=== PATIENT | female | born 2005 | race Hispanic/Latino ===

== ENCOUNTER 2023-10-01 09:30 | Emergency (ER) | payer BC ==
[~2023-10-01] VITALS: Ht 160 cm; Wt 85.3 kg
[2023-10-01] MEDS ORDERED: IBUPROFEN 600 MG TABLET PO ONE (11:00)
[2023-10-01 11:10] LABS: APPEARANCE,URINE CLEAR (CLEAR); BILIRUBIN,URINE NEGATIVE (NEGATIVE); GLUCOSE, URINE (UA) NEGATIVE (NEGATIVE); KETONES,URINE NEGATIVE (NEGATIVE); LEUKOCYTE ESTERASE ,URINE NEGATIVE Leu/uL (NEGATIVE); NITRATE,URINE NEGATIVE (NEGATIVE); OCCULT BLOOD,URINE NEGATIVE (NEGATIVE); PROTEIN,URINE NEGATIVE (NEGATIVE); UROBILINOGEN,URINE 0.2 mg/dL (0.2-1.0)
[2023-10-01 11:11] LABS: HCG,QUALITATIVE URINE NEGATIVE (NEGATIVE)
[2023-10-01 11:18] LABS: ADD UA MICROSCOPIC NO; COLOR,URINE YELLOW (YELLOW)
[2023-10-01 15:40] VITALS: BP 132/72; PULSE 74; RESP 18; O2SAT 100
== END 2023-10-01 16:12 | disposition home or self-care (01) ==
LOC: EDH 09:30
DX: M51.36 Other intervertebral disc degeneration, lumbar region (principal); M54.50 Low back pain, unspecified; M48.061 Spinal stenosis, lumbar region without neurogenic claudication
CPT/HCPCS: 72131; 81003; 81025; 96374; 96375